=== PATIENT | female | born 1955 | race Caucasian/White ===

== ENCOUNTER 2020-01-26 17:50 | Emergency (ER) | payer MEDICAID, MEDICARE ==
[~2020-01-26] VITALS: Ht 162.6 cm; Wt 70.0 kg
[2020-01-26 19:21] LABS: CHLORIDE 111 mEq/L (98-107); CLARITY URINE CLEAR (CLEAR); COLOR URINE YELLOW (YELLOW); KETONES URINE 1+ (NEGATIVE); LEUKOCYTE ESTERASE URINE NEGATIVE (NEGATIVE); NITRITE URINE NEGATIVE (NEGATIVE); OCCULT BLOOD URINE 2+ (NEGATIVE); PH URINE 6.5 (4.5-8.0); PROTEIN URINE NEGATIVE (NEGATIVE); UROBILINOGEN URINE 0.2 E.U./dL (0.2-1.0)
[2020-01-26 19:22] LABS: BASOPHILS % 0.7 % (0.0-2.0); EOSINOPHILS % 3.3 % (0.0-5.0); HEMATOCRIT. 42.3 % (36.0-48.0); HEMOGLOBIN. 14.1 g/dL (12.0-16.0); LYMPHOCYTES % 30.1 % (20.0-50.0); MEAN CORPUSCULAR HEMOGLOBIN 32.9 pg (28.0-32.0); MEAN PLATELET VOLUME 8.6 fl (7.4-10.4); MONOCYTES % 6.3 % (2.0-8.0); NEUTROPHILS % 59.6 % (40.0-76.0); PLATELET 222 x1000/uL (130-400); RED BLOOD CELL COUNT 4.27 mill/uL (4.2-5.4); RED CELL DISTRIBUTION WIDTH 14.8 % (11.6-14.6)
[2020-01-26] MEDS ORDERED: MORPHINE SULFATE 4 MG/ML CPJ (NOT FOR IM USE) IV ONE (19:30)
[2020-01-26] MEDS ORDERED: ONDANSETRON 4MG ODT PO ONE (19:30)
[2020-01-26] MEDS ORDERED: IOHEXOL-350 100 ML BOTTLE ONE (21:22)
[2020-01-26 22:56] VITALS: BP 140/80
[2020-02-07] MEDS ORDERED: METR250T MT (11:06)
== END 2020-01-26 23:09 | disposition home or self-care (01) ==
LOC: ER 17:50
DX: R10.13 Epigastric pain (principal); K21.9 Gastro-esophageal reflux disease without esophagitis; I10 Essential (primary) hypertension; Z87.19 Personal history of other diseases of the digestive system
CPT/HCPCS: 36415; 71275; 74174; 80053; 81003; 83690; 85025; 96374; 99284; J2270; Q0162; Q9967

== ENCOUNTER 2020-02-05 14:29 | Inpatient (IN) | payer MEDICARE, MEDICAID ==
[~2020-02-05] VITALS: Ht 162.6 cm; Wt 71.7 kg
[2020-02-05] MEDS: ENOXAPARIN 40MG/0.4ML SYR SUBCUT SCH (03:10)
[2020-02-05] MEDS: SODIUM CHLORIDE 0.45% 1,000 ML IV SCH (03:15)
[2020-02-05] MEDS ORDERED: ACETAMINOPHEN 325MG TABLET PO STA (15:11)
[2020-02-05] MEDS ORDERED: FAMOTIDINE 20MG TABLET PO ONE (15:30)
[2020-02-05] MEDS ORDERED: ONDANSETRON 4MG ODT PO ONE (15:30)
[2020-02-05 15:40] LABS: CLARITY URINE CLEAR (CLEAR); COLOR URINE YELLOW (YELLOW); KETONES URINE 1+ (NEGATIVE); LEUKOCYTE ESTERASE URINE 1+ (NEGATIVE); NITRITE URINE NEGATIVE (NEGATIVE); OCCULT BLOOD URINE 3+ (NEGATIVE); PROTEIN URINE TRACE (NEGATIVE); SPECIFIC GRAVITY URINE 1.013 (1.005-1.030); UROBILINOGEN URINE 0.2 E.U./dL (0.2-1.0)
[2020-02-05] MEDS ORDERED: CEFTRIAXONE 1 G PREMIX 50 ML IV ONE (16:30)
[2020-02-05] MEDS ORDERED: SODIUM CHLORIDE 0.9% 1,000 ML IV ONE (16:39)
[2020-02-05 17:20] LABS: BASOPHILS % 0.3 % (0.0-2.0); HEMATOCRIT. 48.2 % (36.0-48.0); LYMPHOCYTES % 12.4 % (20.0-50.0); MEAN CORPUSCULAR HEMOGLOBIN 32.5 pg (28.0-32.0); MEAN PLATELET VOLUME 8.6 fl (7.4-10.4); MONOCYTES % 5.2 % (2.0-8.0); NEUTROPHILS % 82.1 % (40.0-76.0); PLATELET 243 x1000/uL (130-400); RED BLOOD CELL COUNT 4.91 mill/uL (4.2-5.4)
[2020-02-05 17:24] LABS: CHLORIDE 104 mEq/L (98-107)
[2020-02-05 17:32] LABS: CREATINE KINASE 67 IU/L (26-192)
[2020-02-05] MEDS ORDERED: SODIUM CHLORIDE 0.9% 1000ML BAG (SEPSIS BOLUS) IV ONE (17:45)
[2020-02-05] MEDS ORDERED: MAGNESIUM/ALUMINUM HYDROXIDE/SIMETHICONE 30ML UDC PO PRN (21:00)
[2020-02-05] MEDS ORDERED: ACETAMINOPHEN 325MG TABLET PO PRN (21:00)
[2020-02-05] MEDS ORDERED: ACETAMINOPHEN 650MG SUPP PR PRN ×2 (21:00)
[2020-02-05] MEDS ORDERED: DOCUSATE SODIUM 100MG CAPSULE PO PRN (21:00)
[2020-02-05] MEDS ORDERED: LORAZEPAM 0.5MG TABLET PO PRN (21:00)
[2020-02-05] MEDS ORDERED: ACETAMINOPHEN 650MG/20.3ML UDC GT PRN (21:00)
[2020-02-05] MEDS ORDERED: NA PHOS,M-B/NA PHOS,DI-BA ENEMA 118ML PR PRN (21:00)
[2020-02-05] MEDS ORDERED: CLONIDINE 0.1MG TABLET PO PRN (21:00)
[2020-02-05] MEDS ORDERED: LEVOFLOXACIN 500MG PREMIX 100 ML IV SCH (22:20)
[2020-02-06 04:05] LABS: BASOPHILS % 0.3 % (0.0-2.0); EOSINOPHILS % 0.1 % (0.0-5.0); HEMATOCRIT. 43.3 % (36.0-48.0); HEMOGLOBIN. 14.6 g/dL (12.0-16.0); LYMPHOCYTES % 9.3 % (20.0-50.0); MEAN CORPUSCULAR HEMOGLOBIN 32.5 pg (28.0-32.0); MEAN CORPUSCULAR VOLUME 96.5 fL (81.0-99.0); MONOCYTES % 6.7 % (2.0-8.0); NEUTROPHILS % 83.6 % (40.0-76.0); PLATELET 206 x1000/uL (130-400); RED BLOOD CELL COUNT 4.49 mill/uL (4.2-5.4); RED CELL DISTRIBUTION WIDTH 15.2 % (11.6-14.6)
[2020-02-06 04:11] LABS: CHLORIDE 108 mEq/L (98-107)
[2020-02-06 04:18] LABS: LDL CHOLESTEROL 71 mg/dL (5-100)
[2020-02-06 04:20] LABS: HDL CHOLESTEROL 43 mg/dL (40-59)
[2020-02-06] MEDS: ACETAMINOPHEN 325MG TABLET PO PRN (08:31)
[2020-02-06] MEDS ORDERED: ONDANSETRON HCL 4MG/2ML INJ IV NR (14:00)
[2020-02-06 15:13] VITALS: BP 133/70
[2020-02-06 16:00] VITALS: BP 140/82
[2020-02-06 20:00] VITALS: BP 146/90
[2020-02-06] MEDS: FAMOTIDINE 20MG/2ML VIAL IV SCH (20:56)
[2020-02-06] MEDS: ENOXAPARIN 40MG/0.4ML SYR SUBCUT SCH (20:56)
[2020-02-06] MEDS: METRONIDAZOLE 500 MG PREMIX 100 ML IV SCH (22:15)
[2020-02-06] MEDS: SODIUM CHLORIDE 0.45% 1,000 ML IV SCH (22:19)
[2020-02-07] VITALS: BP 108/72
[2020-02-07 04:00] VITALS: BP 126/83
[2020-02-07] MEDS: LEVOFLOXACIN 500MG PREMIX 100 ML IV SCH (05:12)
[2020-02-07] MEDS: METRONIDAZOLE 500 MG PREMIX 100 ML IV SCH ×3 (06:34→21:22)
[2020-02-07 08:00] VITALS: BP 132/79
[2020-02-07] MEDS: FAMOTIDINE 20MG/2ML VIAL IV SCH ×2 (08:27→21:21)
[2020-02-07] MEDS: ACETAMINOPHEN 325MG TABLET PO PRN (08:27)
[2020-02-07] MEDS ORDERED: METR250T MT (11:06)
[2020-02-07 12:00] VITALS: BP 131/80
[2020-02-07 13:18] LABS: HEMATOCRIT. 37.8 % (36.0-48.0); HEMOGLOBIN. 12.8 g/dL (12.0-16.0); MEAN CORPUSCULAR HEMOGLOBIN 32.6 pg (28.0-32.0); MEAN CORPUSCULAR VOLUME 96.2 fL (81.0-99.0); MEAN PLATELET VOLUME 8.3 fl (7.4-10.4); PLATELET 178 x1000/uL (130-400); RED BLOOD CELL COUNT 3.93 mill/uL (4.2-5.4); RED CELL DISTRIBUTION WIDTH 15.4 % (11.6-14.6)
[2020-02-07 13:34] LABS: CHLORIDE 108 mEq/L (98-107)
[2020-02-07] MEDS: SODIUM CHLORIDE 0.45% 1,000 ML IV SCH (13:48)
[2020-02-07 15:46] LABS: PLATELET ESTIMATE NORMAL
[2020-02-07 16:00] VITALS: BP 104/59
[2020-02-07] MEDS ORDERED: POTASSIUM CHLORIDE 20MEQ TABLET SR PO NR (17:59)
[2020-02-07 20:00] VITALS: BP 139/70
[2020-02-07] MEDS: ENOXAPARIN 40MG/0.4ML SYR SUBCUT SCH (21:22)
[2020-02-08] VITALS: BP 126/69
[2020-02-08] MEDS: ACETAMINOPHEN 325MG TABLET PO PRN ×2 (02:21→12:40)
[2020-02-08] MEDS: SODIUM CHLORIDE 0.45% 1,000 ML IV SCH (03:20)
[2020-02-08 04:00] VITALS: BP 110/69
[2020-02-08] MEDS: LEVOFLOXACIN 500MG PREMIX 100 ML IV SCH (05:01)
[2020-02-08 05:54] LABS: BASOPHILS % 0.5 % (0.0-2.0); EOSINOPHILS % 1.6 % (0.0-5.0); HEMATOCRIT. 38.3 % (36.0-48.0); HEMOGLOBIN. 12.8 g/dL (12.0-16.0); LYMPHOCYTES % 34.9 % (20.0-50.0); MEAN CORPUSCULAR HEMOGLOBIN 32.2 pg (28.0-32.0); MEAN CORPUSCULAR VOLUME 96.1 fL (81.0-99.0); MEAN PLATELET VOLUME 8.9 fl (7.4-10.4); MONOCYTES % 10.9 % (2.0-8.0); NEUTROPHILS % 52.1 % (40.0-76.0); PLATELET 206 x1000/uL (130-400); RED BLOOD CELL COUNT 3.98 mill/uL (4.2-5.4); RED CELL DISTRIBUTION WIDTH 15.2 % (11.6-14.6)
[2020-02-08] MEDS: METRONIDAZOLE 500 MG PREMIX 100 ML IV SCH ×2 (06:09→14:40)
[2020-02-08 06:16] LABS: CHLORIDE 110 mEq/L (98-107)
[2020-02-08 08:00] VITALS: BP 98/59
[2020-02-08] MEDS: FAMOTIDINE 20MG/2ML VIAL IV SCH (08:01)
[2020-02-08 12:00] VITALS: BP 126/82
[2020-02-08] MEDS ORDERED: POTASSIUM CHLORIDE 20MEQ TABLET SR PO NR (14:00)
[2020-02-08 15:05] VITALS: BP 126/82
== END 2020-02-08 17:15 | disposition home health service (06) | DRG 872 ==
LOC: ER 14:29 → MICUSO 17:48 → 5WST 02-06 13:04
PROVIDERS: ADMIT Family Medicine; ATTEND Family Medicine
DX: A41.9 Sepsis, unspecified organism (principal); N39.0 Urinary tract infection, site not specified; K29.70 Gastritis, unspecified, without bleeding; K21.9 Gastro-esophageal reflux disease without esophagitis; E66.9 Obesity, unspecified; K52.9 Noninfective gastroenteritis and colitis, unspecified; E86.0 Dehydration; R65.20 Severe sepsis without septic shock; I10 Essential (primary) hypertension; Z68.27 Body mass index [BMI] 27.0-27.9, adult
CPT/HCPCS: 36415; 71045; 74018; 80053; 80061; 81003; 82550; 82728; 83605; 83615; 84145; 85025; 85379; 86140; 87015; 87045; 87070; 87427; 87430; 87449; 87493; 93005; 96365; 99285; J0696; J1650; J1956; J2405; J3490; J7030; Q0162

== ENCOUNTER 2020-04-27 15:13 | Emergency (ER) | payer MEDICARE, MEDICAID ==
[~2020-04-27] VITALS: Ht 152.4 cm; Wt 60.0 kg
[~2020-04-27 15:13] MED LIST: METR250T MT
[2020-04-27] MEDS ORDERED: IBUPROFEN 600MG TABLET PO STA (15:54)
[2020-04-27] MEDS ORDERED: ACETAMINOPHEN 325MG TABLET PO STA (15:54)
[2020-04-27 17:01] LABS: BASOPHILS % 0.9 % (0.0-2.0); EOSINOPHILS % 3.6 % (0.0-5.0); HEMATOCRIT. 39.2 % (36.0-48.0); HEMOGLOBIN. 13.1 g/dL (12.0-16.0); LYMPHOCYTES % 29.1 % (20.0-50.0); MEAN CORPUSCULAR VOLUME 98.4 fL (81.0-99.0); MEAN PLATELET VOLUME 8.1 fl (7.4-10.4); MONOCYTES % 6.8 % (2.0-8.0); NEUTROPHILS % 59.6 % (40.0-76.0); PLATELET 221 x1000/uL (130-400); RED BLOOD CELL COUNT 3.98 mill/uL (4.2-5.4); RED CELL DISTRIBUTION WIDTH 15.8 % (11.6-14.6)
[2020-04-27 17:06] LABS: CHLORIDE 109 mEq/L (98-107)
[2020-04-27 17:39] VITALS: BP 120/76
== END 2020-04-27 17:40 | disposition home or self-care (01) ==
LOC: ER 15:13
DX: B34.9 Viral infection, unspecified (principal); I10 Essential (primary) hypertension; K21.9 Gastro-esophageal reflux disease without esophagitis; Z90.49 Acquired absence of other specified parts of digestive tract
CPT/HCPCS: 36415; 71045; 80053; 85025; 93005; 99285

== ENCOUNTER 2020-07-10 17:55 | Inpatient (IN) | payer MEDICARE, MEDICAID ==
[~2020-07-10] VITALS: Ht 152.4 cm; Wt 77.1 kg
[2020-07-10] MEDS ORDERED: PIPERACILLIN/TAZ 3.375G PREMIX 50 ML IV ONE (18:45)
[2020-07-10] MEDS ORDERED: VANCOMYCIN 1 G PREMIX 200 ML IV ONE (18:45)
[2020-07-10] MEDS ORDERED: SODIUM CHLORIDE 0.9% 1000ML BAG (SEPSIS BOLUS) IV ONE (18:45)
[2020-07-10 19:57] LABS: BASOPHILS % 0.7 % (0.0-2.0); EOSINOPHILS % 5.1 % (0.0-5.0); HEMATOCRIT. 39.6 % (36.0-48.0); HEMOGLOBIN. 13.1 g/dL (12.0-16.0); LYMPHOCYTES % 35.7 % (20.0-50.0); MEAN CORPUSCULAR HEMOGLOBIN 31.4 pg (28.0-32.0); MEAN CORPUSCULAR VOLUME 94.6 fL (81.0-99.0); MEAN PLATELET VOLUME 8.4 fl (7.4-10.4); MONOCYTES % 6.6 % (2.0-8.0); NEUTROPHILS % 51.9 % (40.0-76.0); PLATELET 214 x1000/uL (130-400); RED BLOOD CELL COUNT 4.18 mill/uL (4.2-5.4); RED CELL DISTRIBUTION WIDTH 14.3 % (11.6-14.6)
[2020-07-10 20:00] LABS: CHLORIDE 109 mEq/L (98-107)
[2020-07-10 21:58] LABS: CLARITY URINE CLEAR (CLEAR); COLOR URINE YELLOW (YELLOW); KETONES URINE TRACE (NEGATIVE); LEUKOCYTE ESTERASE URINE NEGATIVE (NEGATIVE); NITRITE URINE NEGATIVE (NEGATIVE); OCCULT BLOOD URINE 1+ (NEGATIVE); PROTEIN URINE NEGATIVE (NEGATIVE); SPECIFIC GRAVITY URINE 1.006 (1.005-1.030); UROBILINOGEN URINE 0.2 E.U./dL (0.2-1.0)
[2020-07-10] MEDS ORDERED: VANCOMYCIN 1 G PREMIX 200 ML IV NR (23:45)
[2020-07-10] MEDS ORDERED: PIPERACILLIN/TAZ 3.375G PREMIX 50 ML IV NR (23:45)
[2020-07-11 00:46] LABS: INR 1.1; PROTHROMBIN TIME 11.5 sec (9.6-11.0)
[2020-07-11] MEDS ORDERED: IOHEXOL-350 100 ML BOTTLE ONE (03:34)
[2020-07-11] MEDS ORDERED: METHYLPREDNISOLONE SOD SUCC 40 MG/ML VIAL IV NR (04:45)
[2020-07-11] MEDS ORDERED: DIPHENHYDRAMINE 50MG/ML VIAL IV PRN ×2 (04:45→19:15)
[2020-07-11] MEDS ORDERED: ACETAMINOPHEN 325MG TABLET PO PRN (19:00)
[2020-07-11] MEDS ORDERED: FAMOTIDINE 20MG TABLET PO PRN (19:00)
[2020-07-11] MEDS ORDERED: HYDROCODONE/ACETAMINOPHEN 5/325MG TABLET PO PRN (19:00)
[2020-07-11] MEDS ORDERED: MORPHINE SULFATE 2 MG/ML CPJ (NOT FOR IM USE) IV PRN (19:15)
[2020-07-11] MEDS ORDERED: GUAIFENESIN 200MG/10ML SUGAR FREE UDC PO PRN (19:15)
[2020-07-11] MEDS ORDERED: LORAZEPAM 0.5MG TABLET PO PRN (19:15)
[2020-07-11] MEDS ORDERED: LORATADINE 10MG TABLET PO SCH (19:15)
[2020-07-11] MEDS ORDERED: ALBUTEROL 6.7GM HFA INHALER ORI PRN (19:15)
[2020-07-11] MEDS ORDERED: ONDANSETRON HCL 4MG/2ML INJ IV PRN (19:15)
[2020-07-11] MEDS ORDERED: MAGNESIUM/ALUMINUM HYDROXIDE/SIMETHICONE 30ML UDC PO PRN (19:15)
[2020-07-11] MEDS ORDERED: DOCUSATE SODIUM 100MG CAPSULE PO PRN (19:15)
[2020-07-11] MEDS ORDERED: NA PHOS,M-B/NA PHOS,DI-BA ENEMA 118ML PR PRN (19:15)
[2020-07-11] MEDS ORDERED: HYDRALAZINE 20MG/ML VIAL IV PRN (19:15)
[2020-07-11] MEDS ORDERED: ENOXAPARIN 40MG/0.4ML SYR SUBCUT SCH (20:00)
[2020-07-11] MEDS ORDERED: LEVOFLOXACIN 500MG PREMIX 100 ML IV SCH (20:00)
[2020-07-11] MEDS ORDERED: FAMOTIDINE 20MG TABLET PO SCH (21:00)
[2020-07-12 03:46] VITALS: BP 130/76
[2020-07-12 04:00] VITALS: BP 130/76
[2020-07-12 08:00] VITALS: BP 110/60
[2020-07-12 09:18] LABS: BASOPHILS % 0.3 % (0.0-2.0); EOSINOPHILS % 0.4 % (0.0-5.0); HEMATOCRIT. 38.2 % (36.0-48.0); HEMOGLOBIN. 12.8 g/dL (12.0-16.0); LYMPHOCYTES % 29.2 % (20.0-50.0); MEAN CORPUSCULAR HEMOGLOBIN 31.3 pg (28.0-32.0); MEAN CORPUSCULAR VOLUME 93.9 fL (81.0-99.0); MEAN PLATELET VOLUME 8.3 fl (7.4-10.4); MONOCYTES % 7.2 % (2.0-8.0); NEUTROPHILS % 62.9 % (40.0-76.0); PLATELET 211 x1000/uL (130-400); RED BLOOD CELL COUNT 4.07 mill/uL (4.2-5.4); RED CELL DISTRIBUTION WIDTH 14.2 % (11.6-14.6)
[2020-07-12 09:29] LABS: CHLORIDE 111 mEq/L (98-107)
[2020-07-12 09:37] LABS: LDL CHOLESTEROL 90 mg/dL (5-100)
[2020-07-12 09:38] LABS: HDL CHOLESTEROL 49 mg/dL (40-59); T4 FREE 1.07 ng/dL (0.76-1.46)
[2020-07-12] MEDS ORDERED: POTASSIUM CHLORIDE 20MEQ TABLET SR PO NR (10:45)
[2020-07-12 12:00] VITALS: BP 121/71
[2020-07-12] MEDS ORDERED: CLAR10 MT (14:41)
[2020-07-12 16:00] VITALS: BP 114/68
[2020-07-12 17:12] VITALS: BP 114/68
== END 2020-07-12 20:26 | disposition home or self-care (01) | DRG 178 ==
LOC: ER 17:55 → MICUSO 23:07 → EDBEDREQSVC 23:10 → EDBEDREQ 23:10 → EDBEDREQTM 23:10 → SUPCPDRO 07-11 19:12 → 7WST 07-12 01:53
PROVIDERS: ADMIT Internal Medicine; ATTEND Internal Medicine
DX: U07.1 COVID-19 (principal); N39.0 Urinary tract infection, site not specified; K21.9 Gastro-esophageal reflux disease without esophagitis; E04.1 Nontoxic single thyroid nodule; I10 Essential (primary) hypertension; J32.9 Chronic sinusitis, unspecified; F17.200 Nicotine dependence, unspecified, uncomplicated; Z79.899 Other long term (current) drug therapy; Z90.49 Acquired absence of other specified parts of digestive tract; I95.9 Hypotension, unspecified; R53.1 Weakness
CPT/HCPCS: 36415; 71045; 71275; 80053; 80061; 81003; 83605; 84145; 84439; 84443; 84484; 85025; 85379; 87635; 93005; 96365; 96366; 96367; 96375; 99291; J1200; J2543; J2920; J3370; J7030; Q9967

== ENCOUNTER 2020-09-10 09:33 | Inpatient (IN) | payer MEDICARE, MEDICAID ==
[~2020-09-10] VITALS: Ht 160 cm; Wt 72.6 kg
[~2020-09-10 09:33] MED LIST changes: +CLAR10 MT
[2020-09-10] MEDS ORDERED: ONDANSETRON HCL 4MG/2ML INJ IV STA (10:08)
[2020-09-10] MEDS ORDERED: VISCOUS LIDOCAINE 2% 15 ML UDC MM ONE (10:15)
[2020-09-10] MEDS ORDERED: SODIUM CHLORIDE 0.9% 1,000 ML IV ONE ×2 (10:15→15:45)
[2020-09-10] MEDS ORDERED: MAGNESIUM/ALUMINUM HYDROXIDE/SIMETHICONE 30ML UDC PO ONE (10:15)
[2020-09-10 11:53] LABS: BASOPHILS % 0.2 % (0.0-2.0); EOSINOPHILS % 1.8 % (0.0-5.0); HEMATOCRIT. 40.2 % (36.0-48.0); HEMOGLOBIN. 13.1 g/dL (12.0-16.0); LYMPHOCYTES % 16.3 % (20.0-50.0); MEAN CORPUSCULAR HEMOGLOBIN 31.5 pg (28.0-32.0); MEAN CORPUSCULAR VOLUME 96.6 fL (81.0-99.0); MEAN PLATELET VOLUME 8.7 fl (7.4-10.4); MONOCYTES % 4.7 % (2.0-8.0); PLATELET 228 x1000/uL (130-400); RED BLOOD CELL COUNT 4.17 mill/uL (4.2-5.4); RED CELL DISTRIBUTION WIDTH 16.4 % (11.6-14.6)
[2020-09-10 11:57] LABS: CHLORIDE 109 mEq/L (98-107)
[2020-09-10] MEDS ORDERED: ACETAMINOPHEN 325MG TABLET PO ONE (12:00)
[2020-09-10 12:55] LABS: CLARITY URINE CLEAR (CLEAR); COLOR URINE YELLOW (YELLOW); KETONES URINE TRACE (NEGATIVE); LEUKOCYTE ESTERASE URINE 1+ (NEGATIVE); NITRITE URINE NEGATIVE (NEGATIVE); OCCULT BLOOD URINE 1+ (NEGATIVE); PH URINE 8.5 (4.5-8.0); PROTEIN URINE NEGATIVE (NEGATIVE); UROBILINOGEN URINE 0.2 E.U./dL (0.2-1.0)
[2020-09-10] MEDS ORDERED: MORPHINE SULFATE 4 MG/ML CPJ (NOT FOR IM USE) IV ONE (13:30)
[2020-09-10] MEDS ORDERED: ONDANSETRON HCL 4MG/2ML INJ IV ONE (13:30)
[2020-09-10] MEDS ORDERED: IOHEXOL 350 MG/ML 200ML INFUS..BTL IV ONE (14:49)
[2020-09-10] MEDS ORDERED: KETOROLAC 15MG/ML VIAL IV ONE (15:00)
[2020-09-10] MEDS ORDERED: PIPERACILLIN/TAZ 3.375G PREMIX 50 ML IV SCH (22:45)
[2020-09-11] MEDS: HYDROMORPHONE HCL/PF 2MG/ML CPJ IV PRN (01:49)
[2020-09-11 02:06] VITALS: BP 153/83
[2020-09-11 04:00] VITALS: BP 139/58
[2020-09-11] MEDS: DEXT 5% WATER + KCL 20MEQ/L 1,000 ML IV SCH ×3 (04:11→20:00)
[2020-09-11] MEDS: PIPERACILLIN/TAZOBACTAM 3.375 G in DEXT 5% WATER 100 ML IV SCH ×3 (04:11→17:24)
[2020-09-11 05:26] LABS: CHLORIDE 104 mEq/L (98-107)
[2020-09-11 06:00] LABS: BASOPHILS % 0.2 % (0.0-2.0); HEMOGLOBIN. 12.8 g/dL (12.0-16.0); LYMPHOCYTES % 8.3 % (20.0-50.0); MEAN CORPUSCULAR HEMOGLOBIN 32.1 pg (28.0-32.0); MEAN CORPUSCULAR VOLUME 95.3 fL (81.0-99.0); MEAN PLATELET VOLUME 8.2 fl (7.4-10.4); MONOCYTES % 3.9 % (2.0-8.0); NEUTROPHILS % 87.6 % (40.0-76.0); PLATELET 219 x1000/uL (130-400); RED BLOOD CELL COUNT 3.99 mill/uL (4.2-5.4); RED CELL DISTRIBUTION WIDTH 15.9 % (11.6-14.6)
[2020-09-11 08:00] VITALS: BP 111/73
[2020-09-11] MEDS: ENOXAPARIN 40MG/0.4ML SYR SUBCUT SCH (08:50)
[2020-09-11] MEDS: ONDANSETRON HCL 4MG/2ML INJ IV PRN ×2 (09:21→20:02)
[2020-09-11] MEDS: ACETAMINOPHEN 650MG/20.3ML UDC GT PRN ×2 (11:32→20:02)
[2020-09-11 12:00] VITALS: BP 143/68
[2020-09-11] MEDS ORDERED: MORPHINE SULFATE 2 MG/ML CPJ (NOT FOR IM USE) IV NR (14:15)
[2020-09-11 16:00] VITALS: BP 138/81
[2020-09-11] MEDS: METOCLOPRAMIDE HCL 10MG/2ML VIAL IV SCH ×2 (17:24→23:59)
[2020-09-11] MEDS: PANTOPRAZOLE SODIUM 40 MG/VIAL IV SCH (17:25)
[2020-09-11 20:00] VITALS: BP 143/89
[2020-09-12] VITALS: BP 130/72
[2020-09-12] MEDS: ACETAMINOPHEN 650MG/20.3ML UDC GT PRN ×2 (00:45→06:50)
[2020-09-12 04:00] VITALS: BP 117/76
[2020-09-12] MEDS: METOCLOPRAMIDE HCL 10MG/2ML VIAL IV SCH ×3 (05:59→18:00)
[2020-09-12 06:15] LABS: CHLORIDE 100 mEq/L (98-107)
[2020-09-12 06:30] LABS: BASOPHILS % 0.1 % (0.0-2.0); HEMATOCRIT. 37.7 % (36.0-48.0); HEMOGLOBIN. 13.2 g/dL (12.0-16.0); LYMPHOCYTES % 15.8 % (20.0-50.0); MEAN CORPUSCULAR HEMOGLOBIN 32.7 pg (28.0-32.0); MEAN CORPUSCULAR VOLUME 93.6 fL (81.0-99.0); MEAN PLATELET VOLUME 8.4 fl (7.4-10.4); MONOCYTES % 10.6 % (2.0-8.0); NEUTROPHILS % 73.5 % (40.0-76.0); PLATELET 232 x1000/uL (130-400); RED BLOOD CELL COUNT 4.03 mill/uL (4.2-5.4)
[2020-09-12 08:00] VITALS: BP 119/78
[2020-09-12] MEDS: DEXT 5% WATER + KCL 20MEQ/L 1,000 ML IV SCH (08:28)
[2020-09-12] MEDS: PIPERACILLIN/TAZOBACTAM 3.375 G in DEXT 5% WATER 100 ML IV SCH ×2 (08:28)
[2020-09-12] MEDS: PANTOPRAZOLE SODIUM 40 MG/VIAL IV SCH (08:28)
[2020-09-12] MEDS: ENOXAPARIN 40MG/0.4ML SYR SUBCUT SCH (08:28)
[2020-09-12] MEDS ORDERED: POTASSIUM CHLORIDE 20MEQ TABLET SR PO NR (10:30)
[2020-09-12 12:00] VITALS: BP 118/70
[2020-09-12] MEDS ORDERED: IPRATROPIUM/ALBUTEROL 0.5-3(2.5)MG/3ML NEB HHN PRN (13:15)
[2020-09-12 13:42] LABS: BG BASE EXCESS 1.5 mmol/L (-2.0-2.0); BG CARBOXYHEMOGLOBIN 0.9 % (0.5-1.5); BG DEOXYHEMOGLOBIN 4.1 % (0.0-5.0); BG FRACTION INSPIRED OXYGEN 21; BG HCO3 ACT 25.4 mmol/L (22.0-26.0); BG METHEMOGLOBIN 0.2 % (0.0-1.5); BG OXYGEN SATURATION 95.9 % (92.0-98.5); BG OXYHEMOGLOBIN 94.8 % (94.0-97.0); BG PCO2 37.9 mmHg (35.0-45.0); BG PH 7.444 (7.350-7.450); BG PO2 74.9 mmHg (75.0-100.0); BG SAMPLE SITE RIGHT BRACHIAL; BG TOTAL HEMOGLOBIN 13.6 g/dL (12.0-18.0); BG VENT MODE ROOM AIR
[2020-09-12] MEDS ORDERED: PIPERACILLIN/TAZOBACTAM 3.375 G in DEXT 5% WATER 100 ML IV SCH (14:00)
[2020-09-12] MEDS: METRONIDAZOLE 500MG TABLET PO SCH ×2 (14:21→22:07)
[2020-09-12] MEDS: DEXT 5%/0.9% NACL 1,000 ML IV SCH (14:25)
[2020-09-12] MEDS ORDERED: LEVOFLOXACIN 500MG PREMIX 100 ML IV SCH (15:00)
[2020-09-12 15:48] LABS: INR 1.1; PROTHROMBIN TIME 11.7 sec (9.6-11.0)
[2020-09-12 16:00] VITALS: BP 124/78
[2020-09-12 16:07] LABS: HEPATITIS B SURFACE ANTIGEN NEGATIVE
[2020-09-12 16:37] LABS: HEPATITIS A AB IGM NEGATIVE (NEGATIVE)
[2020-09-12 19:58] VITALS: BP 126/73
[2020-09-13 00:05] VITALS: BP 141/85
[2020-09-13] MEDS: METOCLOPRAMIDE HCL 10MG/2ML VIAL IV SCH ×5 (00:10→23:43)
[2020-09-13] MEDS: ACETAMINOPHEN 650MG/20.3ML UDC GT PRN ×2 (00:10→16:34)
[2020-09-13] MEDS: DEXT 5%/0.9% NACL 1,000 ML IV SCH ×3 (00:11→19:15)
[2020-09-13 04:00] VITALS: BP 134/73
[2020-09-13] MEDS: METRONIDAZOLE 500MG TABLET PO SCH ×3 (06:06→23:44)
[2020-09-13 06:44] LABS: CHLORIDE 109 mEq/L (98-107)
[2020-09-13 06:55] LABS: BASOPHILS % 0.1 % (0.0-2.0); EOSINOPHILS % 0.1 % (0.0-5.0); HEMATOCRIT. 37.3 % (36.0-48.0); HEMOGLOBIN. 12.7 g/dL (12.0-16.0); MEAN CORPUSCULAR VOLUME 94.2 fL (81.0-99.0); MEAN PLATELET VOLUME 8.1 fl (7.4-10.4); MONOCYTES % 13.1 % (2.0-8.0); NEUTROPHILS % 69.7 % (40.0-76.0); PLATELET 228 x1000/uL (130-400); RED BLOOD CELL COUNT 3.96 mill/uL (4.2-5.4); RED CELL DISTRIBUTION WIDTH 16.2 % (11.6-14.6)
[2020-09-13 08:00] VITALS: BP 139/72
[2020-09-13] MEDS: ENOXAPARIN 40MG/0.4ML SYR SUBCUT SCH (08:35)
[2020-09-13] MEDS: PANTOPRAZOLE SODIUM 40 MG/VIAL IV SCH (08:35)
[2020-09-13] MEDS ORDERED: POTASSIUM CHLORIDE 20MEQ TABLET SR PO SCH (10:30)
[2020-09-13 12:00] VITALS: BP 135/75
[2020-09-13] MEDS: LEVOFLOXACIN 250MG PREMIX 50 ML IV SCH (14:16)
[2020-09-13 16:00] VITALS: BP 133/76
[2020-09-13] MEDS: LORAZEPAM 2MG/ML CPJ IV PRN (16:34)
[2020-09-13 20:00] VITALS: BP 117/74
[2020-09-14] VITALS (7 sets, daily range): BP systolic 108–183; BP diastolic 72–96
[2020-09-14] MEDS: METRONIDAZOLE 500MG TABLET PO SCH ×2 (05:58→13:54)
[2020-09-14] MEDS: DEXT 5%/0.9% NACL 1,000 ML IV SCH ×2 (05:58→16:19)
[2020-09-14] MEDS: METOCLOPRAMIDE HCL 10MG/2ML VIAL IV SCH ×3 (05:58→18:06)
[2020-09-14] MEDS: ENOXAPARIN 40MG/0.4ML SYR SUBCUT SCH (08:39)
[2020-09-14] MEDS: PANTOPRAZOLE SODIUM 40 MG/VIAL IV SCH (08:39)
[2020-09-14] MEDS: ACETAMINOPHEN 650MG/20.3ML UDC GT PRN (09:21)
[2020-09-14] MEDS: ONDANSETRON HCL 4MG/2ML INJ IV PRN (09:21)
[2020-09-14 10:22] LABS: HEMATOCRIT 38.6 % (36.0-48.0); HEMOGLOBIN 12.6 g/dL (12.0-16.0); MEAN CORPUSCULAR HEMOGLOBIN 31.3 pg (28.0-32.0); MEAN CORPUSCULAR VOLUME 95.7 fL (81.0-99.0); PLATELET 213 x1000/uL (130-400); RED BLOOD CELL COUNT 4.03 mill/uL (4.2-5.4)
[2020-09-14 10:38] LABS: CHLORIDE 109 mEq/L (98-107)
[2020-09-14] MEDS ORDERED: POTASSIUM CHLORIDE 20MEQ TABLET SR PO NR (11:00)
[2020-09-14] MEDS: LEVOFLOXACIN 250MG PREMIX 50 ML IV SCH (11:52)
[2020-09-14] MEDS: HYDROMORPHONE HCL/PF 2MG/ML CPJ IV PRN (13:57)
[2020-09-14] MEDS ORDERED: TRAM50TA94 MT (14:55)
[2020-09-14] MEDS ORDERED: ONDA4TAB5 MT (14:55)
[2020-09-14] MEDS ORDERED: PROT40 MT (14:55)
[2020-09-14] MEDS ORDERED: BISACODYL 5MG TABLET PO NR (16:30)
[2020-09-14 23:32] LABS: BASOPHILS % 0.3 % (0.0-2.0); EOSINOPHILS % 0.6 % (0.0-5.0); HEMATOCRIT. 40.9 % (36.0-48.0); HEMOGLOBIN. 13.7 g/dL (12.0-16.0); LYMPHOCYTES % 16.3 % (20.0-50.0); MEAN CORPUSCULAR HEMOGLOBIN 31.8 pg (28.0-32.0); MEAN CORPUSCULAR VOLUME 95.1 fL (81.0-99.0); MONOCYTES % 9.5 % (2.0-8.0); NEUTROPHILS % 73.3 % (40.0-76.0); PLATELET 235 x1000/uL (130-400); RED CELL DISTRIBUTION WIDTH 16.2 % (11.6-14.6)
[2020-09-14 23:43] LABS: CHLORIDE 106 mEq/L (98-107)
[2020-09-15] MEDS: METOCLOPRAMIDE HCL 10MG/2ML VIAL IV SCH ×3 (00:17→12:27)
[2020-09-15] MEDS: METRONIDAZOLE 500MG TABLET PO SCH ×3 (00:17→15:30)
[2020-09-15] MEDS: HYDROMORPHONE HCL/PF 2MG/ML CPJ IV PRN (00:20)
[2020-09-15 00:30] VITALS: BP 141/82
[2020-09-15] MEDS: HYDRALAZINE 20MG/ML VIAL IV PRN ×2 (00:44→05:42)
[2020-09-15] MEDS: ACETAMINOPHEN 650MG/20.3ML UDC GT PRN ×2 (01:18→09:16)
[2020-09-15] MEDS: LORAZEPAM 2MG/ML CPJ IV PRN (01:20)
[2020-09-15] MEDS: DEXT 5%/0.9% NACL 1,000 ML IV SCH ×2 (01:37→10:48)
[2020-09-15 04:00] VITALS: BP 98/64
[2020-09-15 08:01] VITALS: BP 102/57
[2020-09-15] MEDS ORDERED: POLYETHYLENE GLYCOL 3350 (17GM) 1 DOSE PACK PO SCH (09:00)
[2020-09-15] MEDS: PANTOPRAZOLE SODIUM 40 MG/VIAL IV SCH (09:10)
[2020-09-15] MEDS: ENOXAPARIN 40MG/0.4ML SYR SUBCUT SCH (09:10)
[2020-09-15] MEDS: LEVOFLOXACIN 250MG PREMIX 50 ML IV SCH (10:47)
[2020-09-15 11:48] VITALS: BP 133/80
[2020-09-15] MEDS ORDERED: LORATADINE 10MG TABLET PO SCH (15:00)
[2020-09-15 15:53] VITALS: BP 128/83
[2020-09-16] MEDS ORDERED: LEVOFLOXACIN 250MG TABLET PO SCH (11:00)
== END 2020-09-15 17:50 | disposition home or self-care (01) | DRG 391 ==
LOC: ER 09:33 → MICUSO 16:08 → 5WST 22:43 → 7WST 09-12 19:47 → 6WST 09-14 04:59
PROVIDERS: ADMIT Internal Medicine; ATTEND Internal Medicine
DX: K52.9 Noninfective gastroenteritis and colitis, unspecified (principal); U07.1 COVID-19; N39.0 Urinary tract infection, site not specified; E87.1 Hypo-osmolality and hyponatremia; E87.2 Acidosis; K29.70 Gastritis, unspecified, without bleeding; K83.8 Other specified diseases of biliary tract; E87.6 Hypokalemia; K21.9 Gastro-esophageal reflux disease without esophagitis; I10 Essential (primary) hypertension; R00.1 Bradycardia, unspecified; K57.30 Diverticulosis of large intestine without perforation or abscess without bleeding; F32.9 Major depressive disorder, single episode, unspecified; Z86.16 Personal history of COVID-19; J30.2 Other seasonal allergic rhinitis; E86.0 Dehydration; Z86.73 Personal history of transient ischemic attack (TIA), and cerebral infarction without residual deficits; Z90.49 Acquired absence of other specified parts of digestive tract; Z79.899 Other long term (current) drug therapy; I86.8 Varicose veins of other specified sites; J32.9 Chronic sinusitis, unspecified
CPT/HCPCS: 36415; 36600; 70551; 74018; 74177; 76700; 80048; 80053; 81003; 82375; 82805; 83605; 84132; 84484; 85025; 85027; 86705; 86709; 86803; 87340; 87426; 93005; 93970; 97116; 97162; 97530; 99291; C1893; C9113; J0360; J1170; J1650; J1885; J1956; J2060; J2270; J2405; J2543; J2765; J7030; J7042; J7060; J7070; Q9967; U0003

== ENCOUNTER 2021-01-02 13:26 | Emergency (ER) | payer MEDICARE, MEDICAID ==
[~2021-01-02] VITALS: Ht 162.6 cm; Wt 64.0 kg
[~2021-01-02 13:26] MED LIST changes: -METR250T MT; +ONDA4TAB5 MT; +PROT40 MT; +TRAM50TA94 MT
[2021-01-02 14:48] LABS: BASOPHILS % 0.8 % (0.0-2.0); EOSINOPHILS % 2.3 % (0.0-5.0); HEMATOCRIT. 39.4 % (36.0-48.0); HEMOGLOBIN. 13.4 g/dL (12.0-16.0); LYMPHOCYTES % 27.5 % (20.0-50.0); MEAN CORPUSCULAR HEMOGLOBIN 27.7 pg (28.0-32.0); MEAN CORPUSCULAR VOLUME 81.8 fL (81.0-99.0); MEAN PLATELET VOLUME 7.8 fl (7.4-10.4); NEUTROPHILS % 61.4 % (40.0-76.0); PLATELET 233 x1000/uL (130-400); RED BLOOD CELL COUNT 4.82 mill/uL (4.2-5.4); RED CELL DISTRIBUTION WIDTH 15.1 % (11.6-14.6)
[2021-01-02 14:55] LABS: CHLORIDE 113 mEq/L (98-107)
[2021-01-02] MEDS ORDERED: ACETAMINOPHEN 325MG TABLET PO ONE (16:15)
[2021-01-02 17:50] LABS: CLARITY URINE CLEAR (CLEAR); COLOR URINE YELLOW (YELLOW); KETONES URINE TRACE (NEGATIVE); LEUKOCYTE ESTERASE URINE 1+ (NEGATIVE); NITRITE URINE NEGATIVE (NEGATIVE); OCCULT BLOOD URINE 1+ (NEGATIVE); PROTEIN URINE NEGATIVE (NEGATIVE); SPECIFIC GRAVITY URINE 1.007 (1.005-1.030); UROBILINOGEN URINE 0.2 E.U./dL (0.2-1.0)
[2021-01-02 20:50] VITALS: BP 149/81
== END 2021-01-02 21:25 | disposition left against medical advice (07) ==
LOC: ER 13:26 → EDBEDREQ 20:04 → EDBEDREQTM 20:04 → ENRESERV 20:26 → CANRESERV 20:26 → ER 21:25 → CANBEDREQ 22:02
DX: R10.13 Epigastric pain (principal); R51.9 Headache, unspecified; I10 Essential (primary) hypertension; Z98.890 Other specified postprocedural states
CPT/HCPCS: 36415; 74176; 80053; 81003; 83605; 84484; 85025; 93005; 99285

== ENCOUNTER 2023-09-18 06:05 | Emergency (ER) | payer MEDICARE, MEDICAID ==
[~2023-09-18] VITALS: Ht 162.6 cm; Wt 67.0 kg
[~2023-09-18 06:05] MED LIST changes: +AMOX250S70 MT; +ASPI-1497 MT; +CLOP75TA33 MT; +CYAN-33 MT; +HYDR-4001 MT; +MECL-299 MT; -ONDA4TAB5 MT; -PROT40 MT; -TRAM50TA94 MT
[2023-09-18 06:18] VITALS: O2SAT 98
[2023-09-18 08:42] LABS: BASOPHILS % 0.8 % (0.0-2.0); EOSINOPHILS % 0.7 % (0.0-5.0); HEMATOCRIT. 42.3 % (36.0-48.0); HEMOGLOBIN. 13.5 g/dL (12.0-16.0); LYMPHOCYTES % 22.5 % (20.0-50.0); MEAN CORPUSCULAR HEMOGLOBIN 27.1 pg (28.0-32.0); MEAN CORPUSCULAR VOLUME 84.8 fL (81.0-99.0); MEAN PLATELET VOLUME 7.8 fl (7.4-10.4); MONOCYTES % 6.5 % (2.0-8.0); NEUTROPHILS % 69.5 % (40.0-76.0); PLATELET 272 x1000/uL (130-400); RED BLOOD CELL COUNT 4.99 mill/uL (4.2-5.4); RED CELL DISTRIBUTION WIDTH 15.2 % (11.6-14.6); WHITE BLOOD COUNT 6.4 x1000/uL (4.5-11.0)
[2023-09-18 08:52] LABS: PROTHROMBIN TIME 10.8 sec (9.6-11.0)
[2023-09-18 09:00] LABS: ALANINE AMINOTRANSFERASE 12 IU/L (10-49); ALBUMIN 4.5 g/dL (3.2-4.8); ASPARTATE AMINOTRANSFERASE 20 IU/L (<34); BILIRUBIN TOTAL 0.4 mg/dL (0.1-1.0); CALCIUM 8.6 mg/dL (8.7-10.4); CARBON DIOXIDE 28 mEq/L (21-32); CHLORIDE 109 mEq/L (98-107); CREATININE 0.7 mg/dL (0.6-1.0); GLUCOSE 114 mg/dL (70-105); POTASSIUM 4.1 mEq/L (3.5-5.1); PROTEIN TOTAL 7.2 g/dL (6.0-8.3); SODIUM 144 mEq/L (136-145); TROPONIN I HIGH SENSITIVITY 8 ng/L (3.0-34); UREA NITROGEN BLOOD 9 mg/dL (9-23)
[2023-09-18 09:35] LABS: CLARITY URINE CLEAR (CLEAR); COLOR URINE YELLOW (YELLOW); GLUCOSE URINE NEGATIVE (NEGATIVE); KETONES URINE NEGATIVE (NEGATIVE); LEUKOCYTE ESTERASE URINE TRACE (NEGATIVE); NITRITE URINE NEGATIVE (NEGATIVE); OCCULT BLOOD URINE 2+ (NEGATIVE); PROTEIN URINE NEGATIVE (NEGATIVE); SPECIFIC GRAVITY URINE 1.009 (1.005-1.030)
[2023-09-18] MEDS: MECLIZINE 25MG TABLET PO ONE (10:00)
[2023-09-18 10:06] LABS: SQUAMOUS EPITHELIAL CELL URINE 2+ /lpf (RARE/1+)
[2023-09-18 10:07] LABS: BACTERIA URINE 2+
[2023-09-18] MEDS ORDERED: CEPH500C2 MT (10:24)
[2023-09-18 11:28] VITALS: BP 124/78; PULSE 81; RESP 16; TEMP 97.8
== END 2023-09-18 11:28 | disposition home or self-care (01) ==
LOC: ER 06:05
DX: R42 Dizziness and giddiness (principal); N39.0 Urinary tract infection, site not specified; F41.9 Anxiety disorder, unspecified; K21.9 Gastro-esophageal reflux disease without esophagitis; I10 Essential (primary) hypertension; Z98.890 Other specified postprocedural states
CPT/HCPCS: 99284; 70450; 71045; 80053; 81003; 83880; 85025; 85610; 84484; 36415; J8597